=== PATIENT | female | born 1980 | race Caucasian/White ===

== ENCOUNTER 2017-01-01 09:40 | Inpatient (IN) | payer OTHER ==
[2016-12-20 10:39] VITALS: BMI 27.0
--- NOTE | 2016-12-20 11:07 | PAT Medication Instructions ---
Service Date Dec 20, 2016. Current Home Medication List Albuterol (Proair Hfa), 2 PUFF INH Q4 PRN for SOB/Wheezing B-Complex Vitamins (Vitamin B Complex), 1 TAB PO QAM Bisacodyl (Dulcolax), 2 TAB PO UD PRN for PRN Budesonide/Formoterol Fumarate (Symbicort 160/4.5 Inhaler ), 2 PUFFS INH BID Montelukast Sodium (Montelukast Sodium), 1 TAB PO QAM Multiple Vitamins W/ Minerals (Hair Skin and Nails Formu), 1 TAB PO QAM Multivitamin (Multivitamin), 1 TAB PO QAM Naproxen (Aleve), 440 MG PO PRN Omeprazole (Prilosec), 20 MG PO BID Pregabalin (Lyrica), 50 MG PO TID Quetiapine Fumarate (Seroquel), 50 MG PO HS Trazodone Hcl (Trazodone), 100 MG PO HS Venlafaxine Hcl (Effexor Xr), 1 CAP PO QAM Medication Instructions For Your Scheduled Surgery - Check with surgeon for instructions: Naproxen (Aleve), 440 MG PO PRN - Hold the following medications the morning of surgery: Multiple Vitamins W/ Minerals (Hair Skin and Nails Formu), 1 TAB PO QAM Multivitamin (Multivitamin), 1 TAB PO QAM Montelukast Sodium (Montelukast Sodium), 1 TAB PO QAM B-Complex Vitamins (Vitamin B Complex), 1 TAB PO QAM Bisacodyl (Dulcolax), 2 TAB PO UD PRN for PRN - Take the following medications the morning of surgery with a sip of water: Venlafaxine Hcl (Effexor Xr), 1 CAP PO QAM Pregabalin (Lyrica), 50 MG PO TID Omeprazole (Prilosec), 20 MG PO BID Budesonide/Formoterol Fumarate (Symbicort 160/4.5 Inhaler ), 2 PUFFS INH BID Albuterol (Proair Hfa), 2 PUFF INH Q4 PRN for SOB/Wheezing (bring with you to hospital morning of surgery) - Take the following medications as scheduled the night before surgery: Trazodone Hcl (Trazodone), 100 MG PO HS Quetiapine Fumarate (Seroquel), 50 MG PO HS Pregabalin (Lyrica), 50 MG PO TID Omeprazole (Prilosec), 20 MG PO BID Budesonide/Formoterol Fumarate (Symbicort 160/4.5 Inhaler ), 2 PUFFS INH BID Bisacodyl (Dulcolax), 2 TAB PO UD PRN for PRN Albuterol (Proair Hfa), 2 PUFF INH Q4 PRN for SOB/Wheezing If you have any questions please call us at [phone] (Shawna Chan PA-C) or [phone] or [phone]
[2016-12-20 12:01] LABS: BASO % 0.3 %; BASO ABS # 0.04 K/uL (0-0.2); COMPLETE YES; EOS % 1.4 %; HEMATOCRIT 44.8 % (37-47); IG% 0.3 %; LYMPH % 28.1 %; LYMPH ABS # 3.31 K/uL (1.2-3.4); MEAN CELL VOLUME 92.8 fL (80-100); MEAN CORPUSCULAR HEMOGLOBIN 32.5 pg (25-34); MEAN PLATELET VOLUME 10.1 fL (7.4-10.4); MONO % 4.3 %; NEUT % 65.6 %; PLATELET COUNT 324 K/uL (130-400); RED BLOOD COUNT 4.83 M/uL (4.2-5.4); WHITE BLOOD COUNT 11.77 K/uL (4.8-10.8)
[2016-12-20 12:05] LABS: URINE APPEARANCE CLEAR (CLEAR); URINE BILIRUBIN NEG (NEG); URINE COLOR DK YELLOW; URINE NITRITE NEG (NEG); URINE PH 8.5 (4.5-7.5); URINE SPECIFIC GRAVITY 1.015 (1.000-1.030); UROBILINOGEN NEG (NEG)
[2016-12-20 12:06] LABS: MANUAL MICROSCOPIC REQUIRED? NO; REVIEW REQ? NO
[2016-12-20 12:18] LABS: BUN/CREATININE RATIO 13.3 (10-20); CALCIUM 8.8 mg/dl (8.5-10.1); CREATININE 0.79 mg/dl (0.60-1.20); POTASSIUM 3.9 mmol/L (3.5-5.1)
[~2017-01-01] VITALS: Ht 170.2 cm; Wt 79.6 kg
--- NOTE | 2017-01-01 07:24 | History & Physical Bridge Note ---
H&P Re-Evaluation Bridge Note: I have examined the patient, reviewed the History & Physical and in the interval since the performance of the History & Physical I have noted the following changes of clinical significance: No changes noted
[~2017-01-01 09:40] MED LIST: ALBU1AER9 INH; B-COTAB18 PO; BISA-16 PO; CEFAZOLIN 1000MG/55 ML D5W IV SCH; LACTATED RINGER'S 1000ML 1,000 ML IV SCH; LYR50 PO; MONT1TAB5 PO; MULT-1018 PO; MULT-506 PO; NAPR1TAB9 PO; PRLSR20 PO; QUET1TAB32 PO; SYMIN160 INH; TRAZ100T29 PO; VENL150C PO
[2017-01-01 11:18] VITALS: BP 113/74; PULSE 85; TEMP 36.9; O2SAT 97; Ht 170.2 cm; Wt 79.6 kg
[2017-01-01] MEDS ORDERED: CEFAZOLIN SOD 1000MG/55 ML D5W IV ONE (11:35)
[2017-01-01] MEDS ORDERED: CLINDAMYCIN 600 MG/54 ML D5W IV ONE (11:40)
[2017-01-01] MEDS ORDERED: EpHEDrine SULFATE INJ 50 MG/ML AMP IV PRN (11:45)
[2017-01-01] MEDS ORDERED: FLUMAZENIL 0.1 MG/1 ML 10 ML VIAL IV PRN (11:45)
[2017-01-01] MEDS ORDERED: MEPERIDINE HCL 25 MG/ML CARP IV PRN (11:45)
[2017-01-01] MEDS ORDERED: NALOXONE HCL 0.4 MG/1 ML VIAL/CARP IV PRN ×4 (11:45→15:00)
[2017-01-01] MEDS ORDERED: ATROPINE SULFATE 0.1 MG/ML 5ML SYR IV PRN (11:45)
[2017-01-01] MEDS ORDERED: MoRPHine SULFATE 10 MG/ML CARP/VIAL IV PRN (11:45)
[2017-01-01] MEDS ORDERED: PHENYLEPHRINE 100MCG/ML 5ML SYR IV PRN (11:45)
[2017-01-01] MEDS ORDERED: ONDANSETRON INJ 2 MG/ML 2 ML VIAL IV PRN ×2 (11:45→15:00)
[2017-01-01] MEDS ORDERED: LABETALOL HCL IV 5 MG/ML 20ML IV PRN (11:45)
[2017-01-01] MEDS ORDERED: FENTANYL CITRATE INJ 50 MCG/1 ML 2 ML VIAL ONE ×2 (12:52→13:46)
[2017-01-01] MEDS ORDERED: MIDAZOLAM HCL 1 MG/ML 2ML VIAL ONE (12:52)
--- NOTE | 2017-01-01 12:54 | History and Physical ---
History & Physical Date Jan 01, 2017. Chief Complaint back and leg pain History of Present Illness The patient is a 36 year old female with complaints of Past Medical/Surgical History Medical Problems: (1) Asthma (2) Herniated lumbar intervertebral disc Surgical Problems: (1) History of cholecystectomy Additional History Hepatic Disease: No Endocrine Disorder: No Kidney Disease: No Hypertension: No Heart Disease: No Bleeding Tendencies: No Infectious Diseases: No Allergies Coded Allergies: Hydromorphone (Verified Allergy, Mild, SEVERE NAUSEA AND VOMITING, 12/20/16) Adhesives (Verified Allergy, Unknown, RASH, 12/20/16) Gabapentin (Verified Allergy, Unknown, rash, vomiting., 12/20/16) Penicillins (Verified Allergy, Unknown, rash, vomiting., 12/20/16) Sulfamethoxazole w/Trimethoprim (Verified Allergy, Unknown, rash, vomiting , 12/20/16) Home Medications Scheduled B-Complex Vitamins (Vitamin B Complex), 1 TAB PO QAM Budesonide/Formoterol Fumarate (Symbicort 160/4.5 Inhaler ), 2 PUFFS INH BID Montelukast Sodium (Montelukast Sodium), 1 TAB PO QAM Multiple Vitamins W/ Minerals (Hair Skin and Nails Formu), 1 TAB PO QAM Multivitamin (Multivitamin), 1 TAB PO QAM Naproxen (Aleve), 440 MG PO PRN Omeprazole (Prilosec), 20 MG PO BID Pregabalin (Lyrica), 50 MG PO TID Quetiapine Fumarate (Seroquel), 50 MG PO HS Trazodone Hcl (Trazodone), 100 MG PO HS Venlafaxine Hcl (Effexor Xr), 1 CAP PO QAM Scheduled PRN Albuterol (Proair Hfa), 2 PUFF INH Q4 PRN for SOB/Wheezing Bisacodyl (Dulcolax), 2 TAB PO UD PRN for PRN Physical Examination Skin: warm/dry, no rash Eyes: normal inspection, EOMI, sclerae normal ENT: normal ENT inspection, pharynx normal Head: normocephalic, atraumatic Neck: supple, no adenopathy, trachea midline Respiratory/Chest: lungs clear, normal breath sounds, no respiratory distress Cardiovascular: regular rate, rhythm, no edema, no murmur Abdomen / GI: normal bowel sounds, non tender Back: normal inspection Extremities: normal inspection, normal range of motion Neurologic/Psych: no motor/sensory deficits, alert, normal reflexes, oriented x 3 Diagnosis hnp L5-S1 Plan of Treatment decompression fusion L5-S1
[2017-01-01] MEDS ORDERED: NURSING VERBAL MED ORDER ONE (13:15)
[2017-01-01] MEDS ORDERED: BACITRACIN 50000 UNIT VIAL ONE (13:17)
[2017-01-01] MEDS ORDERED: SODIUM CHLORIDE 0.9% PF 50 ML VIAL ONE (13:17)
[2017-01-01] MEDS ORDERED: BUPIVACAINE/EPINEPHRINE 0.5% MPF 1:200,000 30 ML VIAL ONE (13:18)
[2017-01-01] MEDS ORDERED: HYDROmorphone INJ 2 MG/ML SYR/VIAL ONE (13:47)
[2017-01-01] MEDS ORDERED: LIDOCAINE HCL 2% 2 ML VIAL (20MG/ML) ONE (14:01)
[2017-01-01] MEDS ORDERED: DEXAMETHASONE SOD INJ 4 MG/ML VIAL ONE (14:01)
[2017-01-01] MEDS ORDERED: RANITIDINE HCL 25 MG/ML INJ ONE (14:01)
[2017-01-01] MEDS ORDERED: ROCURONIUM BROMIDE 10 MG/ML 5 ML VIAL ONE (14:01)
[2017-01-01] MEDS ORDERED: PROPOFOL IV EMULSION 10 MG/ML 20 ML VIAL IV ONE (14:01)
[2017-01-01] MEDS ORDERED: NEOSTIGMINE METHYLSULFATE 1 MG/ML 10ML VIAL ONE (14:01)
[2017-01-01] MEDS ORDERED: ONDANSETRON INJ 2 MG/ML 2 ML VIAL ONE (14:01)
[2017-01-01] MEDS ORDERED: METOCLOPRAMIDE HCL INJ 5 MG/ML 2 ML VIAL ONE (14:01)
[2017-01-01] MEDS ORDERED: GLYCOPYRROLATE INJ 0.2 MG/ML VIAL ONE (14:01)
[2017-01-01] MEDS ORDERED: KETOROLAC TROMETHAMINE 30 MG/ML VIAL ONE (14:33)
[2017-01-01] MEDS ORDERED: FLOSEAL HEMOSTATIC MATRIX 10ML TOP ONE (14:41)
[2017-01-01] MEDS ORDERED: SODIUM CHLORIDE 0.9% 1000ML 1,000 ML IV SCH ×2 (14:47)
--- NOTE | 2017-01-01 14:47 | [facility] Post Operative Brief Note ---
Immediate Operative Summary Operative Date Jan 01, 2017. Pre-Operative Diagnosis Herniated Nucleus Pulposus L5-S1 Post-Operative Diagnosis Same as preoperative diagnosis Procedure(s) Performed tlif Surgeon Dr Montes Wax Pattern Coater Surgeon(s) Stella Albarado PA-C Estimated Blood Loss 100 Findings stenosis Specimens None per surgeon
--- NOTE | 2017-01-01 14:55 | DIAGNOSTIC IMAGING REPORT ---
LUMBAR SPINE, INTRAOPERATIVE FLUOROSCOPY HISTORY: L5-S1 decompression and fusion. FLUOROSCOPY TIME: 20 seconds. FINDINGS: Intraoperative fluoroscopy was provided for the lumbar spine. 2 fluoroscopic spot images were obtained. Posterior decompression fusion at L5-S1 with pedicle screws and rods. The hardware is intact. IMPRESSION: Fluoroscopy provided for a L5-S1 posterior decompression and fusion. Electronically signed by: Arya Leong M.D. 01/01/2017 2:53 PM Dictated Date/Time: 01/01/2017 2:53 PM
[2017-01-01] MEDS ORDERED: BISACODYL 10 MG SUPP PR PRN (15:00)
[2017-01-01] MEDS ORDERED: METOCLOPRAMIDE HCL INJ 5 MG/ML 2 ML VIAL IV PRN (15:00)
[2017-01-01] MEDS ORDERED: DO NOT ADMINISTER PNEUMOCOCCAL VACCINE PRN ×2 (15:00)
[2017-01-01] MEDS ORDERED: DO NOT ADMINISTER FLU VACCINE PRN ×3 (15:00)
[2017-01-01] MEDS ORDERED: ACETAMINOPHEN IV 100 ML IV PRN (15:00)
[2017-01-01] MEDS ORDERED: FAMOTIDINE 20 MG TAB PO PRN (15:00)
[2017-01-01] MEDS ORDERED: hydrOXYzine HCL 25 MG TAB PO PRN (15:00)
[2017-01-01] MEDS ORDERED: PROMETHAZINE HCL INJ 12.5 MG in SODIUM CHLORIDE 0.9% 50ML 50 ML IV PRN (15:00)
[2017-01-01] MEDS ORDERED: ALBUTEROL HFA 8 GM INHALER INH PRN (15:00)
[2017-01-01] MEDS ORDERED: ALUMINUM/MAGNESIUM SUSP 30 ML UDC PO PRN (15:00)
[2017-01-01] MEDS ORDERED: ACETAMINOPHEN 500 MG TAB PO PRN (15:00)
[2017-01-01] MEDS ORDERED: MAGNESIUM HYDROXIDE SUSP 30 ML UDC PO PRN (15:00)
[2017-01-01] MEDS ORDERED: LORAZEPAM INJ 0.5 MG in SYRINGE 0 ML IV PRN (15:00)
[2017-01-01] MEDS ORDERED: SOD PHOSPHATE/SOD BIPHOSPHATE ENEMA 132 ML BTL PR PRN (15:00)
[2017-01-01] MEDS ORDERED: LORAZEPAM 0.5 MG TAB PO PRN (15:00)
[2017-01-01] MEDS ORDERED: MoRPHine SULFATE 1 MG/ML 50 ML PCA CASS ONE (15:04)
--- NOTE | 2017-01-01 15:06 | OPERATIVE REPORT ---
DATE OF OPERATION: 01/01/2017 PREOPERATIVE DIAGNOSIS: Spinal stenosis, disc desiccation L5-S1. POSTOPERATIVE DIAGNOSIS: Same. PROCEDURE PERFORMED: 1. Lumbar decompression, medial facetectomy and foraminotomy L5-S1. 2. Posterior spinal fusion L5-S1. 3. Placement posterior instrumentation using Orthros rods and screws, L5-S1. 4. Interbody fusion L5-S1. 5. Placement of PEEK cage 11 x 22 mm at L5-S1. 6. Placement of locally harvested morcellized autograft in posterior gutters. 7. Placement of FiberNet and OsteoStrux in the interbody space and posterior lateral gutters. SURGEON: Dr. Kodi Montes. SOFTWARE TEST ENGINEER: Stella Albarado PA-C. ANESTHESIA: General. DISPOSITION: The patient awakened and taken to PACU in stable condition. HISTORY OF PATIENT'S PROBLEMS: This is a 36-year-old female who is well known to me that presents after failing an extensive course of nonoperative care. She elected to undergo the above-mentioned procedure. Risks, benefits, pros, cons, and alternatives were outlined in detail preoperatively. OPERATION AND FINDINGS: PROCEDURE: The patient was met with preoperatively, the case discussed and all questions were addressed. At that point the patient was taken back to operative suite and after undergoing successful general endotracheal intubation via department of anesthesia was placed in prone position on Nicholas table atop Homer frame. All bony prominences were well padded and the eyes were inspected to ensure there was no external pressure placed upon them. At this point, lumbar spine was prepped and draped in normal sterile fashion. Sharp dissection with the assistance of Bovie cautery performed down to and exposing the lamina and transverse processes of L5 and sacral ala bilaterally. From a caudal to cephalad fashion, complete laminectomy of L5 was performed including medial facetectomies and foraminotomies. I then placed pedicle screws in L5 and S1 levels bilaterally with assistance of fluoroscopy and appropriate size gonzález provisionally placed. Through a transforaminal approach on the right, a complete discectomy of L5-S1 was performed, endplates curetted to subcortical bleeding bone and an 11 x 22 mm PEEK cage filled with FiberNet and OsteoStrux tapped into position. The rods were then locked into final position bilaterally and transverse processes of L5 and the sacral ala burred to subcortical bleeding bone. FiberNet and OsteoStrux combined with locally harvested morcellized autograft was placed in the posterior gutters. A 7 flat CRICKET drain was inserted. Incision was closed with 1-0 Vicryl in the fascia, 2-0 Vicryl subcutaneously, 4-0 Monocryl for final skin closure. Steri-Strips and sterile dressing placed. The patient was awakened and taken to PACU in stable condition. I attest to the content of the Intraoperative Record and any orders documented therein. Any exceptio ns are noted below.
--- NOTE | 2017-01-01 15:45 | Anesthesiology Progress Note ---
Anesthesia Post Op Note Date & Time Jan 01, 2017 at 15:44 Vital Signs Pain Intensity: 4 Vital Signs Past 12 Hours Date Time Temp Pulse Resp B/P Pulse Ox O2 Delivery O2 Flow Rate FiO2 01/01/17 15:31 117/69 01/01/17 15:28 71 22 01/01/17 15:28 71 22 98 01/01/17 15:26 118/75 01/01/17 15:23 75 22 01/01/17 15:23 75 22 100 01/01/17 15:22 81 19 100 01/01/17 15:22 82 19 01/01/17 15:21 111/77 01/01/17 15:17 83 22 01/01/17 15:17 82 22 100 01/01/17 15:16 127/75 01/01/17 15:12 89 21 100 01/01/17 15:12 89 21 01/01/17 15:10 123/71 01/01/17 15:07 93 21 133/ 92 01/01/17 15:07 95 21 01/01/17 15:05 106/72 01/01/17 15:04 36.7 95 18 106/72 97 Mask 10 01/01/17 11:18 36.9 85 16 113/74 97 Room Air Notes Mental Status: alert / awake / arousable, participated in evaluation Pt Amnestic to Procedure: Yes Nausea / Vomiting: adequately controlled Pain: adequately controlled Airway Patency, RR, SpO2: stable & adequate BP & HR: stable & adequate Hydration State: stable & adequate Anesthetic Complications: no major complications apparent
[2017-01-01 16:30] VITALS: BP 103/67; PULSE 73; TEMP 36.4; O2SAT 99
[2017-01-01] MEDS: LACTATED RINGER'S 1000ML 1,000 ML IV SCH ×2 (16:41→21:56)
[2017-01-01 16:58] VITALS: BP 117/76; PULSE 66; TEMP 36.4; O2SAT 99
[2017-01-01] MEDS: MoRPHine SULFATE 1 MG/ML 50 ML PCA CASS IV PRN ×2 (17:14→18:55)
[2017-01-01 18:00] VITALS: BP 117/76; PULSE 68; TEMP 36.7; O2SAT 98
[2017-01-01] MEDS: NICOTINE 14 MG/24 HR TDSY TD SCH (18:22)
[2017-01-01 19:05] VITALS: BP 113/74; PULSE 67; TEMP 36.6; O2SAT 99
[2017-01-01] MEDS: PREGABALIN 50 MG CAP PO SCH (20:38)
[2017-01-01] MEDS: TRAZODONE HCL 100 MG TAB PO SCH (20:39)
[2017-01-01] MEDS: DOCUSATE SODIUM/SENNA 50/8.6MG TAB PO SCH (20:39)
[2017-01-01] MEDS: PANTOprazole SOD 40 MG TAB PO SCH (20:39)
[2017-01-01] MEDS: BUDESONIDE/FORMOTEROL FUMARATE 160/4.5 60 PUFFS/INHALER INH SCH (20:39)
[2017-01-01] MEDS: QUETIAPINE FUMARATE 25 MG TAB PO SCH (20:40)
[2017-01-01] MEDS: DEXAMETHASONE INJ 6 MG in SYRINGE 0 ML IV SCH (21:56)
[2017-01-01] MEDS: CLINDAMYCIN IV 600 MG in DEXTROSE 5% ADD-VANTAGE 50ML 50 ML IV SCH (21:56)
[2017-01-02 00:05] VITALS: BP 113/70; PULSE 64; TEMP 36.8; O2SAT 97
[2017-01-02 03:25] VITALS: BP 113/72; PULSE 71; TEMP 36.7; O2SAT 97
[2017-01-02] MEDS: LACTATED RINGER'S 1000ML 1,000 ML IV SCH (03:54)
[2017-01-02] MEDS: DEXAMETHASONE INJ 6 MG in SYRINGE 0 ML IV SCH ×2 (05:30→14:34)
[2017-01-02] MEDS: CLINDAMYCIN IV 600 MG in DEXTROSE 5% ADD-VANTAGE 50ML 50 ML IV SCH (05:30)
[2017-01-02] MEDS ORDERED: MoRPHine SULFATE 2 MG/ML CARP IV PRN (06:00)
[2017-01-02] MEDS ORDERED: MoRPHine SULFATE 4 MG/ML 1 ML CARP\\VIAL IV PRN (06:00)
[2017-01-02] MEDS ORDERED: NURSING DECISION MEDICATION ORDER SCH (06:00)
[2017-01-02 06:09] LABS: HEMATOCRIT 38.5 % (37-47); MEAN CELL VOLUME 93.4 fL (80-100); MEAN CORPUSCULAR HEMOGLOBIN 31.3 pg (25-34); MEAN CORPUSCULAR HGB CONC 33.5 g/dl (32-36); MEAN PLATELET VOLUME 9.9 fL (7.4-10.4); PLATELET COUNT 329 K/uL (130-400); RED BLOOD COUNT 4.12 M/uL (4.2-5.4); WHITE BLOOD COUNT 21.98 K/uL (4.8-10.8)
[2017-01-02 06:39] LABS: BUN/CREATININE RATIO 10.1 (10-20); CALCIUM 8.7 mg/dl (8.5-10.1); CREATININE 0.92 mg/dl (0.60-1.20); POTASSIUM 3.9 mmol/L (3.5-5.1)
[2017-01-02 07:05] LABS: BASO ABS # 0.01 K/uL (0-0.2); COMPLETE YES; IG% 0.4 %; LYMPH % 4.8 %; LYMPH ABS # 1.06 K/uL (1.2-3.4); NEUT % 91.8 %
[2017-01-02 07:19] VITALS: BP 112/73; PULSE 79; TEMP 36.9; O2SAT 96
[2017-01-02] MEDS ORDERED: KETOROLAC TROMETHAMINE 30 MG/ML VIAL IV PRN (08:30)
--- NOTE | 2017-01-02 08:42 | PROGRESS NOTE ---
DATE: 01/02/2017 DATE: 01/02/2017. SUBJECTIVE: Postop day 1. Back pain controlled. Leg pain improved. Vital signs stable. T-max 36.9. CRICKET drained 70 mL over the last shift. Hematocrit this a.m. is 38.5. OBJECTIVE: On exam she has good strength to testing, appears comfortable. ASSESSMENT: Status post lumbar decompression and fusion. PLAN: At this time, will initiate physical therapy, advance her bowel regimen and anticipate home possibly tomorrow.
[2017-01-02] MEDS: MONTELUKAST SOD 10 MG TAB PO SCH (08:46)
[2017-01-02] MEDS: BUDESONIDE/FORMOTEROL FUMARATE 160/4.5 60 PUFFS/INHALER INH SCH ×2 (08:46→20:58)
[2017-01-02] MEDS: VENLAFAXINE HCL XR 150 MG CAPXR PO SCH (08:46)
[2017-01-02] MEDS: NICOTINE 14 MG/24 HR TDSY TD SCH (08:47)
[2017-01-02] MEDS: OXYCODONE HCL IR 5 MG TAB (IMMEDIATE RELEASE) PO PRN ×2 (08:59→21:04)
[2017-01-02] MEDS: PREGABALIN 50 MG CAP PO SCH ×3 (09:40→20:58)
[2017-01-02] MEDS: PANTOprazole SOD 40 MG TAB PO SCH ×2 (09:40→20:59)
--- NOTE | 2017-01-02 10:33 | Anesthesiology Progress Note ---
Anesthesia Post Op Note Date & Time Jan 02, 2017 at 10:32 Vital Signs Vital Signs Past 12 Hours Date Time Temp Pulse Resp B/P Pulse Ox O2 Delivery O2 Flow Rate FiO2 01/02/17 08:11 Room Air 01/02/17 07:19 36.9 79 16 112/73 96 Room Air 01/02/17 03:25 36.7 71 16 113/72 97 Room Air 01/02/17 00:05 36.8 64 16 113/70 97 Room Air Notes Mental Status: alert / awake / arousable, participated in evaluation Pt Amnestic to Procedure: Yes Nausea / Vomiting: adequately controlled Pain: adequately controlled Airway Patency, RR, SpO2: stable & adequate BP & HR: stable & adequate Hydration State: stable & adequate Anesthetic Complications: no major complications apparent
[2017-01-02 10:49] VITALS: BP 102/64; PULSE 78; TEMP 36.7; O2SAT 97
[2017-01-02 15:02] VITALS: BP 121/79; PULSE 87; TEMP 36.6; O2SAT 97
[2017-01-02] MEDS: TRAZODONE HCL 100 MG TAB PO SCH (20:58)
[2017-01-02] MEDS: DOCUSATE SODIUM/SENNA 50/8.6MG TAB PO SCH (20:59)
[2017-01-02] MEDS: QUETIAPINE FUMARATE 25 MG TAB PO SCH (21:00)
[2017-01-02 22:56] VITALS: BP 118/76; PULSE 94; TEMP 36.7; O2SAT 96
[2017-01-03] MEDS: POLYETHYLENE (MIRALAX) 17 GM PACK PO SCH ×2 (05:36→12:00)
[2017-01-03 06:06] VITALS: BP 136/86; PULSE 87; TEMP 36.8; O2SAT 99
[2017-01-03 07:56] VITALS: O2SAT 98
[2017-01-03 07:57] VITALS: BP 110/72; PULSE 82; TEMP 36.7; O2SAT 98
[2017-01-03] MEDS: PANTOprazole SOD 40 MG TAB PO SCH (08:00)
[2017-01-03] MEDS: VENLAFAXINE HCL XR 150 MG CAPXR PO SCH (08:00)
[2017-01-03] MEDS: MONTELUKAST SOD 10 MG TAB PO SCH (08:00)
[2017-01-03] MEDS: BUDESONIDE/FORMOTEROL FUMARATE 160/4.5 60 PUFFS/INHALER INH SCH (08:00)
[2017-01-03] MEDS: PREGABALIN 50 MG CAP PO SCH ×2 (08:01→14:00)
[2017-01-03] MEDS: OXYCODONE HCL IR 5 MG TAB (IMMEDIATE RELEASE) PO PRN ×2 (08:02→14:08)
[2017-01-03] MEDS: NICOTINE 14 MG/24 HR TDSY TD SCH (08:03)
[2017-01-03] MEDS ORDERED: RXC5 PO (10:37)
--- NOTE | 2017-01-03 10:37 | Discharge Instructions ---
Discharge Instructions Date of Service Jan 03, 2017. Admission Reason for Admission: Lumbar Spinal Stenosis Discharge Discharge Diagnosis / Problem: stenosis Discharge Goals Goal(s): Improve function Activity Recommendations Activity Limitations: per Instructions/Follow-up section . Instructions / Follow-Up Instructions / Follow-Up ACTIVITY RECOMMENDATIONS: SELF CARE INSTRUCTIONS AFTER THORACIC/LUMBAR FUSIONS 1. You may walk to your tolerance. It is good exercise for your legs and back. Expect some back and intermittent leg aches and pains. 2. You may perform "counter-top" level activities (make a sandwich, presley with a project, etc.). 3. No bending or lifting of more than 10 pounds or back twisting of any nature (roll like a log when turning in bed). 4. You may ride in a car for 20-30 minutes at a time. No driving until after your first visit with your doctor. 5. Frequent changes of position and restricting sitting to 30 minutes at a time will help limit the amount of back spasms and stiffness you may experience. 6. You may discontinue the use of ambulatory aids (cane, crutches, etc.) once your strength and confidence allow. 7. You may upholsterer assembly line the shower and let water strike your incision when you arrive home at least once daily. Do not take a tub bath, sit in a hot tub or go into a swimming pool until after your first recheck in the office. SPECIAL CARE INSTRUCTIONS: VERY IMPORTANT TO READ AND REVIEW A. Your surgical incision has been closed with a cosmetic suture under the skin that will dissolve in about 6 weeks. In 14 days, you can use a pair of clean scissors and cut the suture that is left outside of the skin at the ends of your incision. 1. The small skin tapes can be removed 7 days after surgery if they have not fallen off by that point. 2. You may keep the wound open to air as much as possible to promote healing after post-op day number 5 unless told otherwise by your doctor. 3. If you think the wound looks like it is becoming infected (redness or worsening drainage) and/or you are experiencing fever, chill or worsening back pain and muscle spasms, contact the office so that we may evaluate you as soon as possible. B. Complications are uncommon, but please contact us if you have any signs or symptoms of: 1. wound infection (fever higher than 102.5 degrees F, redness, separation of wound, drainage, or increasing pain from the incision) 2. blood clots in legs (pain, swelling, redness and warmth in legs) 3. urinary tract infection (fever higher than 102.5 degrees F, burning upon urination or increased frequency of urination) 4. nerve problems (inability to walk on your toes or heels, numbness, loss of bowel or bladder control) 5. any other symptoms that concern you C. Please call the office at if you have any concerns or questions about your operation or recovery. D. No smoking! Smoking drastically decreases the chance of a solid fusion. E. Do not take any anti-inflammatory medications (Indocin, Advil, Motrin, Aspirin, Naprosyn, etc.) as these may inhibit the chance of a solid fusion. Tylenol is okay to take for pain. MANAGING PAIN AFTER SPINAL SURGERY 1. Narcotic medication is intended for short-term use and will be provided for surgical pain. Surgical pain usually lasts for a period of 4-6 weeks. Narcotic medication includes Percocet, Vicodin, Darvocet, Tylenol #3 or Lortab. 2. Longer-term pain is more appropriately treated with non-narcotic medication such as Tylenol ES. 3. Muscle spasm is not appropriately treated with narcotics. Muscle relaxers such as Soma, Flexeril or Skelaxin can be used along with Tylenol ES. 4. Remember that we all live with some "aches and pains". This is not unusual or uncommon after an injury or as we get older. a. Back pain is expected and may include muscle spasms for 4 to 6 weeks after surgery. The pain should gradually improve. If the pain worsens for no apparent reason, please contact the office. b. Intermittent leg pain may also be experienced and should not be concerned about unless it worsens for no apparent reason. If so, please contact the office. 5. We will provide appropriate medication within the normal guidelines of their prescribed use. We will also be very cautious and aware of potential abuse and extended duration of patients' medication needs. a. Pain medications are for your comfort and to assist with sleep and rest so that the tissue can heal. They are not provided in order to return to normal activity and should not be used through the day. To do so or worsening pain at night can result from ongoing tissue damage and development of tolerance to the prescribed medicine. 6. Please allow 2-3 days to process refills. Prescriptions will not be mailed but must be picked up at the office. FOLLOW UP VISIT: Keep your scheduled follow-up appointment. Any questions, please call the office at . Current Hospital Diet Patient's current hospital diet: Regular Diet Discharge Diet Recommended Diet: Regular Diet Procedures Procedures Performed: L5-S1 Lumbar Decompression and posterior spinal Fusion; with use of Vertical Spine; instrumentation; application of interbody cage at L5-S1 Pending Studies Studies pending at discharge: no Medical Emergencies . Who to Call and When: Medical Emergencies: If at any time you feel your situation is an emergency, please call 911 immediately. . Non-Emergent Contact Non-Emergency issues call your: Primary Care Provider . "Provider Documentation" section prepared by Kodi Montes. VTE Core Measure Inpt VTE Proph given/why not?: Kika Salinas, SCD's
[2017-01-03 11:40] VITALS: BP 114/70; PULSE 91; TEMP 36.8; O2SAT 97
[2017-01-03 11:52] VITALS: BP 114/70; PULSE 91; TEMP 36.8; O2SAT 97
--- NOTE | 2017-01-03 14:18 | DISCHARGE SUMMARY ---
DATE OF DISCHARGE: 01/03/2017. PRINCIPAL DIAGNOSIS: Spinal stenosis. HOSPITAL COURSE FOLLOWS: On January 01 the patient underwent lumbar decompression and fusion L5-S1, tolerated this well and taken to the orthopedic floor postoperatively. Postop day #1 she was up and ambulatory with marked improvement. Progressed to postop day #2. Pain well controlled. Subsequently discharged home. Discharge orders and instructions can be found on the chart for further review.
== END 2017-01-03 14:41 | disposition home health service (06) | DRG 460 ==
LOC: ENRESERVDT → ENRESERVTM → C.ACU 09:40 → C.3E 13:30
PROVIDERS: ADMIT Orthopaedic Surgery Orthopaedic Surgery of the Spine; ATTEND Orthopaedic Surgery Orthopaedic Surgery of the Spine
PROC: 0ST20ZZ Resection of Lumbar Vertebral Disc, Open Approach (ICD-10-PCS; principal; 2017-01-01 13:15)
PROC: 0SG30A1 (ICD-10-PCS; principal; 2017-01-01 13:15)
PROC: 3E0U0GB Introduction of Recombinant Bone Morphogenetic Protein into Joints, Open Approach (ICD-10-PCS; principal; 2017-01-01 13:15)
DX: M48.07 Spinal stenosis, lumbosacral region (principal); J45.909 Unspecified asthma, uncomplicated; Z90.49 Acquired absence of other specified parts of digestive tract